=== PATIENT | female | born 1960 | race Caucasian/White ===

== ENCOUNTER 2017-04-01 11:12 | Emergency (ER) | payer BC ==
[~2017-04-01] VITALS: Ht 170.2 cm; Wt 115.5 kg
[~2017-04-01 11:12] MED LIST: AMARYL; AMARYL4 MG PO; AMLOPIDINE; ANTIVERT; ANTIVERT 25MG25 MG PO; AVANDIA; BYETTA 10M600 MCG/SY SC; GLUCOPHAGE1000 MG PO; LANTUS100 U/ML SC; NORVASC 10MG10 MG PO; TYLENOL 325MG325 MG PO; VALIUM 5MG T5 MG/TAB PO; WELLBUTRIN PO; WELLBUTRIN XL300 M1 PO; ZOCOR; ZOCOR 10MG10 MG PO; ZOFRAN 4MG T4 MG/TAB PO
[2017-04-01 11:13] VITALS: TEMP 99.8
[2017-04-01 11:51] LABS: BASO % 0.5 % (0.0-2.0); EOS # 0.1 (0.0-0.7); EOS % 1.3 % (0-4.0); GRAN # 4.5 (1.4-6.5); GRAN % 53.6 % (42.2-75.2); LYMPH # 3.1 (1.2-3.4); MEAN CELL VOLUME 74 fl (80.0-100.0); MEAN CORPUSCULAR HEMOGLOBIN 22 pg (27.0-31.0); MEAN CORPUSCULAR HGB CONC 30 g/dl (33.0-37.0); MEAN PLATELET VOLUME 10.3 fl (7.4-10.4); MONO # 0.6 (0.1-0.6); MONO % 7.2 % (1.7-9.3); PLATELET COUNT 292 K/mm3 (130-400); RED BLOOD COUNT 5.27 M/mm3 (4.10-5.30); REDCELL DISTRIBUTION WIDTH-CV 18.2 % (11.5-14.5); WHITE BLOOD COUNT 8.3 K/mm3 (4.8-10.8)
[2017-04-01 11:52] LABS: HEMOGLOBIN 11.7 g/dl (12.5-16.0)
[2017-04-01 12:01] LABS: ADJUSTED CALCIUM 9.4 mg/dL (8.4-10.2); ALBUMIN 4.5 gm/dL (3.5-5.0); BILIRUBIN,TOTAL 0.5 mg/dL (0.0-1.0); C-REACTIVE PROTEIN 0.8 mg/dL (0.0-0.9); CALCIUM 9.8 mg/dL (8.4-10.2); CREATININE, serum 0.67 mg/dL (0.52-1.25); TOTAL PROTEIN 7.8 gm/dL (6.4-8.2)
[2017-04-01] MEDS ORDERED: ATIVAN 0.50.5 MG/TAB PO (12:53)
[2017-04-01 13:20] VITALS: BP 131/76; PULSE 92
== END 2017-04-01 13:21 | disposition home or self-care (01) ==
LOC: COL.ER 11:12
PROVIDERS: Emergency Medicine
DX: R42 Dizziness and giddiness (principal); E11.9 Type 2 diabetes mellitus without complications; I10 Essential (primary) hypertension; E78.5 Hyperlipidemia, unspecified; M19.90 Unspecified osteoarthritis, unspecified site; Z90.49 Acquired absence of other specified parts of digestive tract; Z98.51 Tubal ligation status; Z87.891 Personal history of nicotine dependence; Z79.84 Long term (current) use of oral hypoglycemic drugs; Z79.4 Long term (current) use of insulin
CPT/HCPCS: J2060; J2405; J7030

== ENCOUNTER → 2018-07-01 | Outpatient (CLI) | payer BC ==
[~2018-07-01] MED LIST changes: +ATIVAN 0.50.5 MG/TAB PO
== END ==
LOC: COL.RAD 07:50
DX: H35.01 Changes in retinal vascular appearance (principal); R41.3 Other amnesia; R20.0 Anesthesia of skin; R90.89 Other abnormal findings on diagnostic imaging of central nervous system
CPT/HCPCS: A9585

== ENCOUNTER → 2019-01-12 | Outpatient (CLI) | payer BC ==
[~2019-01-12] VITALS: Ht 170.2 cm; Wt 110.2 kg
[~2019-01-12] MED LIST changes: +AMOXICILLIN 8751 TAB PO; +FARXIGA10 PO; +TRULICITY1.5 MG/0.5 SQ
[2019-01-12 05:39] VITALS: BP 149/90; PULSE 101
[2019-01-12 07:20] VITALS: BP 124/64; PULSE 109
[2019-01-12 07:21] VITALS: BP 118/59; PULSE 103
[2019-01-12 07:22] VITALS: BP 109/52; PULSE 103
[2019-01-12 07:23] VITALS: BP 112/53; PULSE 99
== END ==
LOC: COL.CARD 05:26
DX: R07.9 Chest pain, unspecified (principal)
CPT/HCPCS: A9500; J2785

== ENCOUNTER → 2019-02-02 | Outpatient (CLI) | payer BC | LOC: COL.PUL 07:30 | DX: R06.02 Shortness of breath (principal); R07.9 Chest pain, unspecified; Z87.891 Personal history of nicotine dependence ==

== ENCOUNTER → 2019-02-07 | Outpatient (CLI) | payer BC | LOC: MC.RAD 16:24 | DX: Z12.31 Encounter for screening mammogram for malignant neoplasm of breast (principal) ==

== ENCOUNTER 2019-02-21 07:50 | Day surgery (SDC) | payer BC ==
[~2019-02-21] VITALS: Ht 170.2 cm; Wt 109.0 kg
[2019-02-21 08:45] VITALS: BP 143/89; PULSE 95; TEMP 98.1
[2019-02-21] MEDS ORDERED: MIRALAX PA17 GM/Dose PO (10:07)
[2019-02-21 10:20] VITALS: BP 122/73; PULSE 86; TEMP 97.7
--- NOTE | 2019-02-21 10:20 | NUR ---
Patient returned back to bay 5. Ambulated to chair without difficulty. Alert and oriented. Vital signs stable. Per Dr. Cazares remain NPO in order to go for barium enema in radiology. Abdullahi at bedside. Call thomas within reach, will continue to monitor.
[2019-02-21 10:35] VITALS: BP 112/72; PULSE 81
--- NOTE | 2019-02-21 10:35 | NUR ---
Vital signs remain stable. Patient denies pain and nausea. Will continue to monitor.
--- NOTE | 2019-02-21 10:45 | NUR ---
Radiology picked up patient via wheel chair. Will return when complete.
[2019-02-21 11:45] VITALS: BP 140/85; PULSE 85
--- NOTE | 2019-02-21 11:45 | NUR ---
Patient brought back from radiology to bay 5. Alert and oriented. Vitals stable. States she would like a drink of water. States she is ready to go home. Will monitor.
--- NOTE | 2019-02-21 11:50 | NUR ---
Discharge instructions reviewed with patient and . All questions answered. IV removed per orders. Patient to get dressed now.
--- NOTE | 2019-02-21 12:08 | NUR ---
Patient brought down to lobby via wheel chair. To be driven home by Abdullahi.
== END 2019-02-21 12:08 | disposition home or self-care (01) ==
LOC: SDCO 07:50
DX: K29.30 Chronic superficial gastritis without bleeding (principal); D50.9 Iron deficiency anemia, unspecified; K64.4 Residual hemorrhoidal skin tags; K59.00 Constipation, unspecified; E11.40 Type 2 diabetes mellitus with diabetic neuropathy, unspecified; E11.319 Type 2 diabetes mellitus with unspecified diabetic retinopathy without macular edema; E78.00 Pure hypercholesterolemia, unspecified; I10 Essential (primary) hypertension; K21.9 Gastro-esophageal reflux disease without esophagitis; E11.9 Type 2 diabetes mellitus without complications; Z90.49 Acquired absence of other specified parts of digestive tract; Z83.71 Family history of colonic polyps; Z83.79 Family history of other diseases of the digestive system; Z87.891 Personal history of nicotine dependence; Z79.84 Long term (current) use of oral hypoglycemic drugs; Z88.5 Allergy status to narcotic agent
CPT/HCPCS: J2250; J3010; J7030

== ENCOUNTER → 2019-02-28 | Outpatient (CLI) | payer BC ==
[~2019-02-28] MED LIST changes: +MIRALAX PA17 GM/Dose PO
== END ==
LOC: COL.RAD 07:28
DX: R11.2 Nausea with vomiting, unspecified (principal)
CPT/HCPCS: A9541

== ENCOUNTER → 2020-08-14 | Outpatient (CLI) | payer BC | LOC: COL.RAD 07-31 12:30 | DX: M51.16 Intervertebral disc disorders with radiculopathy, lumbar region (principal); M51.17 Intervertebral disc disorders with radiculopathy, lumbosacral region ==

== ENCOUNTER 2020-09-03 06:57 | Day surgery (SDC) | payer BC ==
[~2020-09-03] VITALS: Ht 170.2 cm; Wt 108.8 kg
[2020-09-03 07:39] VITALS: BP 127/75; PULSE 102; TEMP 98.6
[2020-09-03] MEDS ORDERED: FERROUS SU325 MG/TAB PO (07:51)
[2020-09-03] MEDS ORDERED: NEURONTIN300 MG/CAP PO (07:52)
[2020-09-03] MEDS ORDERED: REGLAN 5MG T5 MG/TAB PO (07:53)
[2020-09-03 09:10] VITALS: BP 101/72; PULSE 82; TEMP 97.6
--- NOTE | 2020-09-03 09:10 | NUR ---
TO BAY 3 PER CART FROM ENDOSCOPY. DROWSY, BUT ORIENTED X3. AMBULATED TO RECLINER WITH 2 ASSIST AND TOLERATED WELL. PATIENT STATED THAT WAS THE BEST SLEEP. RECEIVED COFFEE PER PATIENT REQUEST. DENIES PAIN OR DISCOMFORT.
[2020-09-03 09:25] VITALS: BP 113/76; PULSE 85
--- NOTE | 2020-09-03 09:25 | NUR ---
SIPPING COFFEE AND DENIES WANTING ANYTHING ELSE TO EAT OR DRINK
[2020-09-03 09:40] VITALS: BP 122/75; PULSE 85
--- NOTE | 2020-09-03 09:40 | NUR ---
DISCONTINUED IV AND INT PATIENT GETTING DRESSED.
--- NOTE | 2020-09-03 09:50 | NUR ---
DR MONTANO INTO TALK WITH PATIENT
--- NOTE | 2020-09-03 10:00 | NUR ---
RECEIVED DISCHARGE INSTRUCTIONS AND VERBALIZED UNDERSTANDING. INSTRUCTED PATIENT IF SHE HAD QUESTIONS TO CALL DR MONTANO.
--- NOTE | 2020-09-03 10:03 | NUR ---
DISCHARGED PER WC BY NURSING STAFF TO PRIVATE CAR IN CARE OF
== END 2020-09-03 10:09 | disposition home or self-care (01) ==
LOC: SDCO 06:57
DX: R13.14 Dysphagia, pharyngoesophageal phase (principal); R11.2 Nausea with vomiting, unspecified; D50.9 Iron deficiency anemia, unspecified; K21.9 Gastro-esophageal reflux disease without esophagitis; K64.0 First degree hemorrhoids; E11.43 Type 2 diabetes mellitus with diabetic autonomic (poly)neuropathy; K31.84 Gastroparesis; E11.311 Type 2 diabetes mellitus with unspecified diabetic retinopathy with macular edema; Z20.828 Contact with and (suspected) exposure to other viral communicable diseases; E78.00 Pure hypercholesterolemia, unspecified; I20.9 Angina pectoris, unspecified; I10 Essential (primary) hypertension; K59.00 Constipation, unspecified; E66.9 Obesity, unspecified; Z68.36 Body mass index [BMI] 36.0-36.9, adult; Z79.899 Other long term (current) drug therapy; Z86.19 Personal history of other infectious and parasitic diseases; Z79.84 Long term (current) use of oral hypoglycemic drugs; Z87.891 Personal history of nicotine dependence
CPT/HCPCS: J2704; J7030

== ENCOUNTER 2020-10-07 19:24 | Emergency (ER) | payer OTHER, BC ==
[~2020-10-07] VITALS: Ht 170.2 cm; Wt 108.6 kg
[~2020-10-07 19:24] MED LIST changes: +FERROUS SU325 MG/TAB PO; +NEURONTIN300 MG/CAP PO; +REGLAN 5MG T5 MG/TAB PO
[2020-10-07] MEDS ORDERED: VOLTAREN GEL 1%1 TU TP (21:32)
[2020-10-07] MEDS ORDERED: VOLTAREN 75 DR75 MG PO (21:32)
[2020-10-07 21:54] VITALS: BP 147/74; PULSE 92; TEMP 97.9
== END 2020-10-07 21:55 | disposition home or self-care (01) ==
LOC: COL.ER 19:24
DX: G56.03 Carpal tunnel syndrome, bilateral upper limbs (principal); E11.9 Type 2 diabetes mellitus without complications; Z90.49 Acquired absence of other specified parts of digestive tract; Z88.5 Allergy status to narcotic agent; Z79.84 Long term (current) use of oral hypoglycemic drugs
CPT/HCPCS: J1885

== ENCOUNTER 2021-01-01 08:30 | Outpatient (RCR) | payer SELFPAY ==
[~2021-01-01 08:30] MED LIST changes: +VOLTAREN 75 DR75 MG PO; +VOLTAREN GEL 1%1 TU TP
== END 2021-03-09 | disposition still patient (30) ==
LOC: MKS.ESL.PT
DX: M51.36 Other intervertebral disc degeneration, lumbar region (principal); M48.061 Spinal stenosis, lumbar region without neurogenic claudication; G62.9 Polyneuropathy, unspecified

== ENCOUNTER 2021-02-26 13:15 | Outpatient (RCR) | payer BC | END 2021-03-06 | disposition home or self-care (01) | LOC: MKS.ESL.PT | DX: M51.36 Other intervertebral disc degeneration, lumbar region (principal); M48.061 Spinal stenosis, lumbar region without neurogenic claudication; G62.9 Polyneuropathy, unspecified | CPT/HCPCS: G0283-GP ==

== ENCOUNTER 2021-03-19 11:02 | Outpatient (RCR) | payer BC | END 2021-06-17 | disposition still patient (30) | LOC: MKS.ESL.PT | DX: M51.36 Other intervertebral disc degeneration, lumbar region (principal); G62.9 Polyneuropathy, unspecified; M48.061 Spinal stenosis, lumbar region without neurogenic claudication ==

== ENCOUNTER → 2021-07-16 | Outpatient (CLI) | payer BC | LOC: COL.RAD 07:36 | DX: M47.26 Other spondylosis with radiculopathy, lumbar region (principal) ==

== ENCOUNTER → 2021-09-04 | Outpatient (CLI) | payer BC | LOC: MC.RAD 16:12 | DX: Z12.31 Encounter for screening mammogram for malignant neoplasm of breast (principal) ==

== ENCOUNTER 2021-10-02 15:45 | Outpatient (RCR) | payer OTHER, BC | END 2021-10-03 | disposition still patient (30) | LOC: WSOT | DX: G56.01 Carpal tunnel syndrome, right upper limb (principal) ==

== ENCOUNTER 2021-11-27 14:15 | Outpatient (RCR) | payer OTHER, BC | END 2021-12-01 | disposition home or self-care (01) | LOC: WSOT | DX: G56.01 Carpal tunnel syndrome, right upper limb (principal) ==

== ENCOUNTER 2021-12-11 14:43 | Outpatient (RCR) | payer OTHER, BC | END 2021-12-11 14:44 | disposition home or self-care (01) | LOC: WSOT 14:43 | DX: G56.00 Carpal tunnel syndrome, unspecified upper limb (principal) ==

== ENCOUNTER 2023-11-11 11:50 | Emergency (ER) | payer BC ==
[~2023-11-11] VITALS: Ht 167.6 cm; Wt 81.4 kg
[~2023-11-11 11:50] MED LIST changes: +CEFTIN500 MG PO; +FLEXERIL 1010 MG/TAB PO; +KEPPRA 500MG500 MG PO
[2023-11-11 12:15] VITALS: TEMP 98.2
[2023-11-11 14:07] LABS: BASO # 0.1 K/mm3 (0.0-0.2); EOS # 0.1 K/mm3 (0.0-0.7); EOS % 2.3 % (0.0-4.0); GRAN % 48.4 % (42.2-75.2); HEMATOCRIT 41.9 % (37.0-47.0); LYMPH # 2.3 K/mm3 (1.2-3.4); LYMPH % 37.1 % (20.0-51.0); MEAN CELL VOLUME 90 fl (80.0-100.0); MEAN CORPUSCULAR HEMOGLOBIN 30 pg (27-31); MEAN CORPUSCULAR HGB CONC 33 g/dl (33.0-37.0); MEAN PLATELET VOLUME 9.7 fl (7.4-10.4); MONO # 0.7 K/mm3 (0.1-0.6); MONO % 10.9 % (1.7-9.3); PLATELET COUNT 214 K/mm3 (130-400); RED BLOOD COUNT 4.66 M/mm3 (4.10-5.30); REDCELL DISTRIBUTION WIDTH-CV 13.2 % (11.5-14.5)
[2023-11-11] MEDS ORDERED: LR 1,000 ML IV ONE (14:15)
[2023-11-11 14:23] LABS: ALBUMIN 3.6 gm/dL (3.4-4.8); BILIRUBIN,TOTAL 0.4 mg/dL (0.2-1.2); CALCIUM 9.9 mg/dL (8.4-10.2); CREATININE, serum 0.74 mg/dL (0.57-1.11); POTASSIUM 3.9 mmol/L (3.5-4.5); TOTAL PROTEIN 6.4 gm/dL (6.2-8.1)
[2023-11-11 14:24] LABS: ERYTHROCYTE SEDIMENTATION RATE 6 mm/hr (0-30)
[2023-11-11 15:11] VITALS: BP 130/74; PULSE 88
[2023-11-11] MEDS ORDERED: PREDNISONE10 MG PO (15:20)
== END 2023-11-11 15:20 | disposition home or self-care (01) ==
LOC: COL.ER 11:50
PROVIDERS: Family Medicine
DX: S09.90XA Unspecified injury of head, initial encounter (principal); E11.42 Type 2 diabetes mellitus with diabetic polyneuropathy; Z79.899 Other long term (current) drug therapy; W18.30XA Fall on same level, unspecified, initial encounter; W22.09XA Striking against other stationary object, initial encounter
CPT/HCPCS: J7120

== ENCOUNTER 2024-01-25 13:48 | Observation (INO) | payer BC ==
[~2024-01-25] VITALS: Ht 170.2 cm; Wt 78.8 kg
[~2024-01-25 13:48] MED LIST changes: +ALEVE 220MG220 MG PO; +B-12 500 MCG PO; +CEPHALEXIN500 M1 PO; +CYMBALTA 30MG30 MG PO; +DITROPAN XL15 MG PO; +IRON TABLETS325 MG PO; +LIDODERM 5% PATC1 EA TP; +LIORESAL 1010 MG/TAB PO; +MAG-OX 400400 MG/TAB PO; +NAPROSYN500 MG PO; +NORVASC 5MG5 MG/TAB PO; +OZEMPIC2 MG/0.75 SQ; +PREDNISONE10 MG PO; +VITAMIN D 50,1.25 MG PO; +VITAMIN E 400 U4001 PO; +ZOCOR 20MG20 MG PO
[2024-01-25] MEDS ORDERED: LORazepam 2 MG/ML 1 ML VIAL IV ONE (15:00)
[2024-01-25] MEDS ORDERED: Meclizine 25 MG TAB PO ONE (15:00)
[2024-01-25] MEDS ORDERED: NS 1,000 ML IV ONE (15:00)
[2024-01-25] MEDS ORDERED: Ondansetron 4 MG/2 ML VIAL IV ONE (15:00)
[2024-01-25 15:58] LABS: BASO % 0.5 % (0.0-2.0); EOS % 0.4 % (0.0-4.0); GRAN % 74.9 % (42.2-75.2); HEMATOCRIT 42.3 % (37.0-47.0); HEMOGLOBIN 14.2 g/dl (12.5-16.0); LYMPH # 1.4 K/mm3 (1.2-3.4); LYMPH % 17.9 % (20.0-51.0); MEAN CELL VOLUME 89 fl (80.0-100.0); MEAN CORPUSCULAR HEMOGLOBIN 30 pg (27-31); MEAN CORPUSCULAR HGB CONC 34 g/dl (33.0-37.0); MEAN PLATELET VOLUME 9.2 fl (7.4-10.4); MONO # 0.5 K/mm3 (0.1-0.6); MONO % 5.9 % (1.7-9.3); PLATELET COUNT 207 K/mm3 (130-400); RED BLOOD COUNT 4.73 M/mm3 (4.10-5.30); REDCELL DISTRIBUTION WIDTH-CV 13.6 % (11.5-14.5)
[2024-01-25 16:24] LABS: ALBUMIN 3.5 g/dL (3.4-4.8); BILIRUBIN,TOTAL 0.3 mg/dL (0.2-1.2); CALCIUM 9.5 mg/dL (8.4-10.2); CREATININE, serum 0.63 mg/dL (0.57-1.11); TOTAL PROTEIN 6.4 g/dl (6.2-8.1)
[2024-01-25 16:31] LABS: TROPONIN-I 0.049 ng/mL (0.00-0.033)
[2024-01-25 17:17] LABS: COLLECTION METHOD CATHETER
[2024-01-25 17:30] LABS: URINE APPEARANCE TURBID (CLEAR/HAZY); URINE BLOOD 3+ (NEGATIVE); URINE COLOR YELLOW (YELLOW); URINE GLUCOSE 2+ (NEGATIVE); URINE KETONE 3+ (NEGATIVE); URINE NITRATE POSITIVE (NEGATIVE); URINE PROTEIN(semi-quant) 1+ (NEGATIVE); URINE UROBILINOGEN 0.2 E.U/dL (0.2-1.0)
[2024-01-25 17:50] LABS: URINE BACTERIA MODERATE /hpf (NONE SEEN); URINE RBC >50 /hpf (0-2); URINE WBC >50 /hpf (0-2)
[2024-01-25] MEDS ORDERED: cefTRIAXone 1 G in Water For Injection,Sterile 10 ML IV SCH (20:15)
[2024-01-25] MEDS ORDERED: LR 1,000 ML IV SCH (20:15)
[2024-01-25 21:24] VITALS: BP 130/80; PULSE 93; TEMP 97.3
[2024-01-25] MEDS ORDERED: Acetaminophen 325 MG TAB PO PRN (22:30)
[2024-01-25] MEDS ORDERED: Ondansetron 4 MG/2 ML VIAL IV PRN (22:30)
[2024-01-25] MEDS ORDERED: Iohexol 350 - 100 ML VIAL IV ONE (23:05)
[2024-01-25] MEDS ORDERED: NS 50 ML IV SCH (23:05)
[2024-01-25] MEDS ORDERED: Glucagon 1 MG VIAL IM PRN (23:15)
[2024-01-25] MEDS ORDERED: Dextrose (Glucose) 15 GM (4 x 3.75 GM) Chewable TABLET PACK PO PRN (23:15)
[2024-01-25] MEDS ORDERED: Dextrose 50% Water 25 GM/50 ML SYRINGE IV PRN (23:15)
[2024-01-25 23:23] VITALS: BP 130/81; PULSE 91
[2024-01-25] MEDS ORDERED: LORazepam 2 MG/ML 1 ML VIAL IV PRN (23:30)
[2024-01-25] MEDS ORDERED: Lidocaine 4% Topical Patch TP PRN (23:30)
[2024-01-25] MEDS ORDERED: Meclizine 25 MG TAB PO PRN (23:30)
--- NOTE | 2024-01-25 23:38 | NUR ---
patient arrived from ED around 2114, alert and oriented x4. denies chest pain and shortness of breath. reports pain in lower back rated 9/10, refuses offered tylenol, request lidocaine patch, order placed by DEMOND Patel. IV in LW is patent, site is clean dry and intact with LR running at 100 ml/hr. slight blanchable redness to sacrum, not additional remarkable skin abnormalities at this time. pt has no further needs, questions, or concerns at this time. fall precautions in place, call light within reach. will continue to monitor.
[2024-01-26] VITALS (12 sets, daily range): BP systolic 127–156; BP diastolic 78–95; PULSE 83–105; TEMP 97.8–98.6
[2024-01-26] MEDS ORDERED: Insulin Lispro (HumaLOG) SQ SCH
[2024-01-26 06:50] LABS: BASO # 0.1 K/mm3 (0.0-0.2); BASO % 0.7 % (0.0-2.0); EOS # 0.2 K/mm3 (0.0-0.7); EOS % 2.1 % (0.0-4.0); GRAN # 2.9 K/mm3 (1.4-6.5); GRAN % 40.3 % (42.2-75.2); HEMATOCRIT 39.7 % (37.0-47.0); HEMOGLOBIN 13.1 g/dl (12.5-16.0); LYMPH # 3.3 K/mm3 (1.2-3.4); LYMPH % 45.9 % (20.0-51.0); MEAN CELL VOLUME 90 fl (80.0-100.0); MEAN CORPUSCULAR HEMOGLOBIN 30 pg (27-31); MEAN CORPUSCULAR HGB CONC 33 g/dl (33.0-37.0); MEAN PLATELET VOLUME 9.7 fl (7.4-10.4); MONO # 0.8 K/mm3 (0.1-0.6); MONO % 10.7 % (1.7-9.3); PLATELET COUNT 226 K/mm3 (130-400); RED BLOOD COUNT 4.41 M/mm3 (4.10-5.30); REDCELL DISTRIBUTION WIDTH-CV 13.5 % (11.5-14.5)
[2024-01-26 07:04] LABS: ALBUMIN 3.3 g/dL (3.4-4.8); BILIRUBIN,TOTAL 0.4 mg/dL (0.2-1.2); CALCIUM 9.5 mg/dL (8.4-10.2); CREATININE, serum 0.55 mg/dL (0.57-1.11); POTASSIUM 3.6 mEq/L (3.5-4.5); TOTAL PROTEIN 5.9 g/dl (6.2-8.1)
[2024-01-26] MEDS ORDERED: D-Alpha Tocopheryl (Vitamin E) 400 Units CAP PO SCH (09:00)
[2024-01-26] MEDS ORDERED: Cyanocobalamin (Vit B-12) 1,000 MCG TAB PO SCH (09:00)
[2024-01-26] MEDS ORDERED: DULoxetine 30 MG CAP PO SCH (09:00)
[2024-01-26] MEDS ORDERED: Magnesium Oxide 400 MG TAB PO SCH (09:00)
[2024-01-26] MEDS ORDERED: Ferrous Sulfate 325 MG TAB PO SCH (09:00)
[2024-01-26] MEDS ORDERED: Gadoterate 20 ML VIAL IV ONE (11:34)
--- NOTE | 2024-01-26 14:59 | NUR ---
Dede. made an attemped visit at 2:45pm
--- NOTE | 2024-01-26 15:36 | NUR ---
Chain Pegger met with patient to discuss discharge planning. Patient lives in [place] with her , Job (ph#[phone]) who is at bedside and sees Dr. Johnson for primary care. Patient currently has BCBS of [place] through her employer, [employer] but is also working on applying for disability. Patient uses [facility] for medications. Patient has a rollator, transport chair, and stool riser at home. Patient stated her , Job provides assistance for all ADLS. Patient does not have DPOA-HC and was not interested in completing one at this time. Patient stated she is hopeful to go home at time of discharge. Patient was scheduled to start outpatient PT today at [facility] on [address]. Discharge Plan: Home pending further recommendations
[2024-01-26] MEDS ORDERED: Simvastatin 20 MG **** subs to Atorvastatin 10 MG PO SCH (21:00)
[2024-01-26] MEDS ORDERED: DULoxetine 60 MG CAP PO SCH (21:00)
[2024-01-26] MEDS ORDERED: Atorvastatin 10 MG TAB PO SCH (21:00)
--- NOTE | 2024-01-26 22:24 | NUR ---
patient lying in bed, alert and oriented x4. IV in LF is patent, site is clean dry and intact with LR running at 100 ml/hr. pt incontinent, full bed change and barbara care provided, small blanchable redness/irritation on sacrum. small scattered red irritation under panus, pt denies interventions at this time. pt has no further needs, questions, or concerns. tolerating small amount of food, full sandwich and juice without nausea, aware of NPO status at midnight, verbally understood. overall weakness primarily left sided weakness, wk left hand alarm mechanism adjuster strength, left fingers maintaining in bent position, pt reports having had difficulty extending fingers since beginning of this year, bilateral toes is similar curled position at rest. fall precautions in place, call light within reach. will continue to monitor.
[2024-01-27] VITALS (10 sets, daily range): BP systolic 136–166; BP diastolic 83–101; PULSE 78–105; TEMP 97.6–98.1
[2024-01-27 07:10] LABS: BASO # 0.1 K/mm3 (0.0-0.2); BASO % 0.9 % (0.0-2.0); EOS # 0.1 K/mm3 (0.0-0.7); GRAN # 3.3 K/mm3 (1.4-6.5); GRAN % 46.7 % (42.2-75.2); HEMATOCRIT 40.2 % (37.0-47.0); HEMOGLOBIN 13.5 g/dl (12.5-16.0); LYMPH # 2.7 K/mm3 (1.2-3.4); MEAN CELL VOLUME 89 fl (80.0-100.0); MEAN CORPUSCULAR HEMOGLOBIN 30 pg (27-31); MEAN CORPUSCULAR HGB CONC 34 g/dl (33.0-37.0); MEAN PLATELET VOLUME 9.6 fl (7.4-10.4); MONO # 0.8 K/mm3 (0.1-0.6); MONO % 11.7 % (1.7-9.3); PLATELET COUNT 230 K/mm3 (130-400); RED BLOOD COUNT 4.52 M/mm3 (4.10-5.30); REDCELL DISTRIBUTION WIDTH-CV 13.2 % (11.5-14.5)
[2024-01-27 07:14] LABS: ALBUMIN 3.4 g/dL (3.4-4.8); BILIRUBIN,TOTAL 0.7 mg/dL (0.2-1.2); CREATININE, serum 0.59 mg/dL (0.57-1.11); POTASSIUM 3.8 mEq/L (3.5-4.5); TOTAL PROTEIN 6.1 g/dl (6.2-8.1)
--- NOTE | 2024-01-27 07:40 | NUR ---
patinet awake and alert, laying in bed. patient denies any needs or complaints at this time. fall precautiosn in place. ivf infusing. call light wtihin reach.
--- NOTE | 2024-01-27 08:50 | NUR ---
PER NUC MED NURSE PATIENT IS REFUSING LEXISCAN. NUC MED NURSE TO INFORM CARDIOLOGY. THIS RN SPOKEW ITH PATIENT. PER PATIENT SHE FEELS SHE HAS TOO MUCH GOING ON AT THIS TIME FOR HER TO DO THE STRESS TEST. PA INFORMED AND MD TO SPEAK WITH PATIENT, PATIENT NPO UNTIL THEN. NEURO EXAM ON JUNIOR, NO AIRFRAME AND POWERPLANT MECHANIC TO L HAND, R HAND AIRFRAME AND POWERPLANT MECHANIC WEAK. PATIENT HAS MINIMAL DORSAL AND PLANTAR FLEXION ON HER LEFT SIDE, AND NORMAL PLANTAR/DORSAL FLEXION TO HER RIGHT. PATEINT IS UNABLE TO HOLD HER L LEG UP IN THE AIR, IT ONLY HOVERS FOR A FEW SECONDS ABOVE BED. PATIENTS R LEG ABLE TO HOLD UP FOR SHORT AMOUNT OF TIME. WOUND NOT TEST RESISTANCE TO EITHER SIDE. PATIENT AWARE SHE IS STILL NPO UNTIL MD SEES HER.
[2024-01-27] MEDS ORDERED: amLODIPine 5 MG TAB PO SCH (09:23)
--- NOTE | 2024-01-27 10:15 | NUR ---
Math Interventionist attended clinical rounds with the team then met with patient to review discharge planning. ZAINAB discussed Home Health services with patient and provided Medicare.gov list of agencies. Patient selected [facility]. ZAINAB contacted Garcia and faxed referral. ZAINAB was then notified that patient will be discharged to [facility]. ZAINAB updated Garcia at [facility].
--- NOTE | 2024-01-27 15:00 | NUR ---
JUNIOR TAKEN VIA EMS TO [facility]. PATIENT LEFT IN STABLE OCNDITOIN WITH ALL HER BELONGINGS
--- NOTE | 2024-01-27 16:00 | NUR ---
REPORT CALLED TO LIZBET AT [facility]. CALL BACK NUMBNER GIVEN. ALL QUESTGIOSN ANSWERED.
== END 2024-01-27 15:00 | disposition short-term general hospital (02) ==
LOC: COL.ER 13:48 → MEDICAL 20:10
PROVIDERS: Emergency Medicine; Physician Assistant; ADMIT Internal Medicine
DX: R42 Dizziness and giddiness (principal); R53.1 Weakness; R32 Unspecified urinary incontinence; N39.0 Urinary tract infection, site not specified; B96.20 Unspecified Escherichia coli [E. coli] as the cause of diseases classified elsewhere; I44.7 Left bundle-branch block, unspecified; E87.20 Acidosis, unspecified; E11.649 Type 2 diabetes mellitus with hypoglycemia without coma; E11.40 Type 2 diabetes mellitus with diabetic neuropathy, unspecified; I10 Essential (primary) hypertension; E78.5 Hyperlipidemia, unspecified; K21.9 Gastro-esophageal reflux disease without esophagitis; I21.4 Non-ST elevation (NSTEMI) myocardial infarction; F17.210 Nicotine dependence, cigarettes, uncomplicated; Z87.820 Personal history of traumatic brain injury; Z79.899 Other long term (current) drug therapy; Z79.84 Long term (current) use of oral hypoglycemic drugs
CPT/HCPCS: A9575; G0378; J0696; J2060; J2405; J7030; J7120; Q9967

== ENCOUNTER → 2024-02-09 | Emergency (ER) | payer BC ==
--- NOTE | 2024-02-10 15:03 | NUR ---
February 10, 2024 8:45am: cotton farmworker was informed patient was recently at [facility] in [place] and left AMA, while she was pending placement. ZAINAB was informed pt is not being admitted and is the ER. cotton farmworker spoke with ZAINAB, Jocelyn [phone] at [facility] who confirms the above information. She reports pt has been there for over 3 weeks and has further debilitating MS symptoms and cannot care for herself at home. Jocelyn informed ZAINAB they had set her up with [facility] upon her leaving AMA. Jocelyn informed ZAINAB they sent referrals to [facility], and [facility]. Jocelyn reports it took 4 staff to load pt into the car and EMS had to meet her at the house to get her inside. Jocelyn reports pt having some hallucinations and was seeing psychiatry. cotton farmworker spoke with NERI Garza liaison who states insurance denied [facility] SB auth and IPR auth. Patient has BCBS [place] with skilled benefits. cotton farmworker spoke with Xiang at [facility] who reports clinically accepting pt, pending insurance auth. He did not know pt had left AMA and reports this will affect insurance auth. BCBS will not cover her stay. Xiang reports pt will have to private pay and he can discuss with them. Xiang inquired about any further work up being done. ZAINAB spoke with YVON Duran who reports pt is medically cleared and had normal labs and head CT. ZAINAB spoke with patient and , Abdullahi [phone] to discuss this information. Pt confirmed she left AMA and went home with home health services. She is agreeable to placement and confirms he cannot care for her. ZAINAB advised pt will have to private pay due to leaving AMA and insurance would not cover. Pt reports concerns affording this. ZAINAB provided information on Medicaid, but [facility] would prefer to complete this in their facility. ZAINAB advised Xiang at [facility] will call them to discuss finances. Family was agreeable and stated to have Xiang call . ZAINAB informed Xiang to discuss with and pt and let SW know the outcome. 12:42PM- cotton farmworker was informed by Xiang at [facility] that they will decline pt due to leaving AMA. 12:54PM- ZAINAB left voicemail to discuss with Franci at [facility]. ZAINAB later spoke with her and she reports not receiving a [facility]. ZAINAB provided verbal details of pt. ZAINAB provided social service worker at [facility]'s number for Franci to obtain referral due to system being down. 1:39pm- cotton farmworker called Nie[facility] director financial systems to meet with pt and complete medicaid application. ZAINAB advised pt will be needing placement, but cannot afford to private pay. ZAINAB notes Edgard later arrived to complete this. ZAINAB notes Director tatiana Conway spoke with pt around 1:50pm and discussed going home with Susie due to the inability to private pay for SNF. Family was agreeable per Director. ZAINAB called [facility] to meet pt at her house to assist with getting inside. 2:15pm- cotton farmworker faxed updates to Susie . ZAINAB spoke with Garcia who reports they can see pt tomorrow and assess the home. 2:20pm- ZAINAB received call from YVON Duran stating she is preparing pt to discharge. ZAINAB waited a few then call EMS to meet pt at the home. Discharge Plan: home with Susie
--- NOTE | 2024-02-10 15:50 | NUR ---
dry dip worker met with patient and spouse to discuss discharge. Patient confirmed that she left AMA from [facility]. Worker confirmed that patient has been off work since November 2023 and has not applied for disability or medicaid. Financial counselor met with patient and spouse before they discharged to home. Worker arranged for [facility] to meet patient and spouse at home and help patient into the home. Patient has physical limitations, however, states she doesn't know her diagnosis. Patient was scheduled, by [facility], to start [facility] health. This will be restarted and worker contacted Sammie at Dr Johnson's office (primary care provider) and requested virtual office visits and they will comply with this. Patient and spouse verbalized the understanding that private pay in a half-way is around 8-10,000 and state they can not afford that. Worker gave patient/spouse list to call [employer] to begin Medicare application process as patient turns 64 in about 3 months, as well as Social Security. Patient has a wheelchair, ramp, and commode at home. They will work with home health to discuss need for lift in the home. Worker collaborated with Meghan social professionals and ED nurse regarding the above information.
== END ==
LOC: COL.ER 18:59
DX: R53.1 Weakness (principal)

== ENCOUNTER 2024-02-13 03:12 | Inpatient (IN) | payer BC ==
[~2024-02-13] VITALS: Ht 170.2 cm; Wt 74.3 kg
[2024-02-13 04:21] LABS: BASO # 0.1 K/mm3 (0.0-0.2); BASO % 0.9 % (0.0-2.0); EOS # 0.2 K/mm3 (0.0-0.7); EOS % 2.1 % (0.0-4.0); GRAN # 3.8 K/mm3 (1.4-6.5); GRAN % 50.2 % (42.2-75.2); HEMATOCRIT 40.3 % (37.0-47.0); HEMOGLOBIN 13.6 g/dl (12.5-16.0); LYMPH # 2.6 K/mm3 (1.2-3.4); LYMPH % 34.3 % (20.0-51.0); MEAN CELL VOLUME 89 fl (80.0-100.0); MEAN CORPUSCULAR HEMOGLOBIN 30 pg (27-31); MEAN CORPUSCULAR HGB CONC 34 g/dl (33.0-37.0); MEAN PLATELET VOLUME 8.8 fl (7.4-10.4); MONO # 0.9 K/mm3 (0.1-0.6); MONO % 11.6 % (1.7-9.3); PLATELET COUNT 335 K/mm3 (130-400); RED BLOOD COUNT 4.52 M/mm3 (4.10-5.30); REDCELL DISTRIBUTION WIDTH-CV 13.4 % (11.5-14.5)
[2024-02-13 04:42] LABS: ALBUMIN 3.2 g/dL (3.4-4.8); BILIRUBIN,TOTAL 0.5 mg/dL (0.2-1.2); CALCIUM 10.3 mg/dL (8.4-10.2); CREATININE, serum 0.73 mg/dL (0.57-1.11); POTASSIUM 3.9 mEq/L (3.5-4.5); TOTAL PROTEIN 6.6 g/dl (6.2-8.1)
[2024-02-13 04:50] LABS: INR 1.1 (0.8-3.0); PARTIAL THROMBOPLASTIN TIME 31.8 SECONDS (26.0-37.0); PROTHROMBIN TIME 11.6 SECONDS (9.7-12.8)
[2024-02-13 05:01] LABS: TROPONIN-I 0.014 ng/mL (0.00-0.033); TSH w REFLEX 3.618 uIU/mL (0.350-4.940)
[2024-02-13] MEDS ORDERED: NS 100 ML IV SCH (06:04)
[2024-02-13] MEDS ORDERED: Iohexol 300 - 100 ML VIAL IV ONE (06:04)
[2024-02-13] MEDS ORDERED: fentaNYL 50 MCG/ML 2 ML VIAL IV ONE (07:15)
[2024-02-13] MEDS ORDERED: Acetaminophen 500 MG TAB PO PRN (09:15)
[2024-02-13] MEDS ORDERED: Polyethylene Glycol 3350 17 GM PDS PO PRN (09:15)
[2024-02-13] MEDS ORDERED: Ondansetron 4 MG/2 ML VIAL IV PRN (09:15)
[2024-02-13] MEDS ORDERED: Methocarbamol 750 MG TAB PO PRN (09:30)
[2024-02-13] MEDS ORDERED: oxyCODONE 5 MG TAB PO PRN (09:30)
[2024-02-13] MEDS ORDERED: Morphine 4 MG/ML VIAL IV PRN (09:30)
[2024-02-13 10:35] VITALS: BP 159/95; PULSE 95; TEMP 98.1
--- NOTE | 2024-02-13 11:00 | NUR ---
GRANT TARRIVED TO UNIT FROM ED AWAKE ALERT AND ORIENTED. PATIENT WITH COMPLAINTS OF LOWER BACK PAIN THAT IS CHRONIC. PATIENT NEURO ASSESSMENT COMPLETE. PATIENT SMILE ASYMPETICAL, L EYE DROOP NOTED. PER PATIENT SHE CAN NOT LIFT HER HEAD TO TUCK HER CHIN TO HER CHEST, LEFT LOWER EXTREMITY MORE WEAK THAN RIGHT. PATIENT UNABLE TO RAISE LEFT ARM, WEAK DRY MAN. PATIENT ORIEINTED TO ROOM. FALL PRECAUTIONS PUT IN PLACE. CALL LIGHT WITHIN REACH.
[2024-02-13 11:40] VITALS: BP 134/91; PULSE 102; TEMP 98
[2024-02-13 15:36] VITALS: BP 149/92; PULSE 107; TEMP 98
[2024-02-13 16:35] LABS: COLLECTION METHOD CLEAN CATCH
[2024-02-13 16:43] LABS: URINE APPEARANCE CLOUDY (CLEAR/HAZY); URINE BLOOD 1+ (NEGATIVE); URINE COLOR YELLOW (YELLOW); URINE GLUCOSE 1+ (NEGATIVE); URINE KETONE 3+ (NEGATIVE); URINE NITRATE POSITIVE (NEGATIVE); URINE PROTEIN(semi-quant) TRACE (NEGATIVE)
[2024-02-13] MEDS ORDERED: Insulin Lispro (HumaLOG) SQ SCH (17:06)
[2024-02-13] MEDS ORDERED: cefTRIAXone 1 G in Water For Injection,Sterile 10 ML IV SCH (17:15)
[2024-02-13] MEDS ORDERED: Baclofen 10 MG TAB PO PRN (17:15)
[2024-02-13] MEDS ORDERED: Lidocaine 4% Topical Patch TP PRN (17:15)
[2024-02-13 17:20] VITALS: BP_SYST 149
[2024-02-13] MEDS ORDERED: Glucagon 1 MG VIAL IM PRN (17:30)
[2024-02-13] MEDS ORDERED: Dextrose 50% Water 25 GM/50 ML SYRINGE IV PRN (17:30)
[2024-02-13] MEDS ORDERED: Dextrose (Glucose) 15 GM (4 x 3.75 GM) Chewable TABLET PACK PO PRN (17:30)
--- NOTE | 2024-02-13 19:10 | NUR ---
PATIENT AWAKE AND ALERT, SITTING UP IN BED. FALL PRECAUTIOSN IN PLACE. BED ALARM ON. FAMILY AT BEDSIDE.
--- NOTE | 2024-02-13 19:34 | NUR ---
ADMISSIONS REPRESENTATIVE NOTIFIED URINE PECIMEN COLLECTED, AND REFLEX MICRO NEEDED. LAB TACH TO RUN IT
[2024-02-13 20:10] VITALS: BP 117/75; PULSE 110; TEMP 98.2
[2024-02-13] MEDS ORDERED: Atorvastatin 10 MG TAB PO SCH (21:00)
[2024-02-13] MEDS ORDERED: Simvastatin 20 MG **** subs to Atorvastatin 10 MG PO SCH (21:00)
[2024-02-13] MEDS ORDERED: DULoxetine 60 MG CAP PO SCH (21:00)
[2024-02-13 23:25] VITALS: BP 121/75; PULSE 100; TEMP 98.3
--- NOTE | 2024-02-13 23:38 | NUR ---
THIS NURSE ASSISTED PCT WITH BED CHANGE. PATIENT WAS INCONTINENT OF STOOL. PATIENT ROLLS WELL IN BED. NEW PURWIK IN PLACE. BARRIER CREAM APPLIED TO BUTTOCKS. REDNESS NOTED. REDNESS NOTED TO HEELS. HEELS FLOATED WITH PILLOW. PATIENT ALSO COMPLAINING OF BACK PAIN, RATING IT A 10/10. OXYCODONE ADMINISTERED PER DEC.
[2024-02-14] VITALS (7 sets, daily range): BP systolic 121–144; BP diastolic 82–84; PULSE 97–101; TEMP 98–98.4
--- NOTE | 2024-02-14 03:40 | NUR ---
PATIENT SCREAMING FOR HELP. THIS NURSE AND CHARGE NURSE WENT TO CHECK ON PATIENT. PATIENT STATES SHE CANNOT USE CALL LIGHT ANYMORE BECAUSE SHE IS TOO WEAK. PATIENT STATES BACK PAIN IS 10/10. THIS NURSE REPOSITIONED PATIENT AND PAIN MEDICATION. NEW TOUCH CALL LIGHT REPLACED REMOTE CALL LIGHT.
[2024-02-14 07:09] LABS: BASO # 0.1 K/mm3 (0.0-0.2); BASO % 0.9 % (0.0-2.0); EOS # 0.1 K/mm3 (0.0-0.7); EOS % 1.2 % (0.0-4.0); GRAN # 4.3 K/mm3 (1.4-6.5); GRAN % 52.9 % (42.2-75.2); HEMATOCRIT 41.5 % (37.0-47.0); HEMOGLOBIN 13.7 g/dl (12.5-16.0); LYMPH # 2.8 K/mm3 (1.2-3.4); LYMPH % 34.5 % (20.0-51.0); MEAN CELL VOLUME 91 fl (80.0-100.0); MEAN CORPUSCULAR HEMOGLOBIN 30 pg (27-31); MEAN CORPUSCULAR HGB CONC 33 g/dl (33.0-37.0); MEAN PLATELET VOLUME 9.2 fl (7.4-10.4); MONO # 0.8 K/mm3 (0.1-0.6); MONO % 9.6 % (1.7-9.3); PLATELET COUNT 368 K/mm3 (130-400); RED BLOOD COUNT 4.56 M/mm3 (4.10-5.30); REDCELL DISTRIBUTION WIDTH-CV 13.5 % (11.5-14.5)
[2024-02-14 07:35] LABS: CALCIUM 10.1 mg/dL (8.4-10.2); CREATININE, serum 0.69 mg/dL (0.57-1.11); POTASSIUM 4.1 mEq/L (3.5-4.5)
[2024-02-14] MEDS ORDERED: amLODIPine 5 MG TAB PO SCH (09:00)
[2024-02-14] MEDS ORDERED: DULoxetine 30 MG CAP PO SCH (09:00)
--- NOTE | 2024-02-14 10:54 | NUR ---
Patient resting in bed, alert and oriented x 4, at bedside. States she feels she has weakness in all her body but left side is worse. Pt follows coomands. Right arm and leg able to keep up, left side just move in bed. She states her sensation is like numbness. Assessment completed, meds tiven . No further needs at this time. Call light within reach.
--- NOTE | 2024-02-14 13:28 | NUR ---
PATIENT IN BED SITTING UPRIGHT, NIF OF -32 CM OF WATER PRESSURE. MAXIMUM EXPIRATORY EFFORT WAS 17 CM OF WATER PRESSURE.
--- NOTE | 2024-02-14 13:59 | NUR ---
fitness worker met with Director, patient and to discuss discharge planning. Discussed need for patient to complete medicaid application with Niecy from [facility]. Patient stating that she is willing to go to long term. Discussed barriers to acceptance for jail care being patient having left Hospital AMA and not having jail care insurance. Patient has not completed disability application. Wine Manager, Director, Niecy from met with patient, , daughter and sister to discuss discharge options and needs. Family all state that they are willing to care for patient at home if they have the appropriate equipment to do so. Patient stated she sees Dr. Johnson as her PCP, [facility] has already met with Niecy with and provided required financial documents. Attending notified SW and Director that patient is being transferred to [facility] today.
--- NOTE | 2024-02-14 15:10 | NUR ---
groundskeeping maintenance worker met with patient and spouse and then again with patient, spouse, daughter (Martha) and patient's sister (Megan) and discussed [facility] and payment if that is what patient will require. In attendance at the meetings, were Kasia social work, and Niecy, financial counselor. Brandie completed a medicaid application and confirmed that patient's BCBS is active. Martha stated they would want to try and care for patient in her home and would need a rick lift and possible hospital bed. Patient is being transferred to [facility] this date. Worker encouraged patient and family talk with social workers at [facility] about their needs for discharge planning. Patient and family verbalized understanding and importance of not leaving any hospital against medical advice as they had done previously.
--- NOTE | 2024-02-14 15:20 | NUR ---
Call placed to give report to [facility] Nurse. Nurse eating, he will call back.
--- NOTE | 2024-02-14 15:58 | NUR ---
Pt was picked up by EMS for transportation.
--- NOTE | 2024-02-14 16:14 | NUR ---
Report given to Ruth SANZ, at [facility]
== END 2024-02-14 16:00 | disposition short-term general hospital (02) | DRG 74 ==
LOC: COL.ER 03:12 → MEDICAL 09:06
PROVIDERS: Emergency Medicine; ADMIT Internal Medicine
DX: G61.81 Chronic inflammatory demyelinating polyneuritis (principal); N39.0 Urinary tract infection, site not specified; G95.89 Other specified diseases of spinal cord; G35 Multiple sclerosis; M54.50 Low back pain, unspecified; R29.810 Facial weakness; E11.42 Type 2 diabetes mellitus with diabetic polyneuropathy; I10 Essential (primary) hypertension; E78.5 Hyperlipidemia, unspecified; E11.43 Type 2 diabetes mellitus with diabetic autonomic (poly)neuropathy; K31.84 Gastroparesis; N32.81 Overactive bladder; K21.9 Gastro-esophageal reflux disease without esophagitis; F41.9 Anxiety disorder, unspecified; F32.A Depression, unspecified; F17.210 Nicotine dependence, cigarettes, uncomplicated; R29.818 Other symptoms and signs involving the nervous system; Z90.49 Acquired absence of other specified parts of digestive tract; Z98.51 Tubal ligation status; Z88.1 Allergy status to other antibiotic agents; Z88.5 Allergy status to narcotic agent; Z88.8 Allergy status to other drugs, medicaments and biological substances; Z91.81 History of falling; Z79.899 Other long term (current) drug therapy; Z79.84 Long term (current) use of oral hypoglycemic drugs; Z23 Encounter for immunization
CPT/HCPCS: J0696; J1650; J3010; Q9967